=== PATIENT | female | born 1995 | race Caucasian/White ===

== ENCOUNTER → 2017-10-01 | Outpatient (CLI) | payer OTHER ==
--- NOTE | 2017-10-01 13:22 | DIAGNOSTIC IMAGING REPORT ---
DOPPLER ULTRASOUND OF THE RENAL ARTERIES CLINICAL HISTORY: Essential hypertension. COMPARISON STUDY: No priors. TECHNIQUE: Doppler sonography of the renal arteries was performed to assess renal artery stenosis. Images are reviewed in the transverse and longitudinal planes. FINDINGS: The kidneys appear normal in size and echotexture. Right kidney measures 11.0 cm in length and the left kidney measures 10.9 cm in length. There is no hydronephrosis. On the right, intrarenal arterial resistive indices range from 0.61 to 0.65. Intrarenal arterial waveforms are normal with brisk upstrokes. The right renal arterial waveform is normal, and velocities within the right renal artery measure up to 123 cm/sec. The right renal vein is patent. On the left, intrarenal arterial resistive indices range from 0.53 to 0.58. Intrarenal arterial waveforms are normal with brisk upstrokes. The left renal arterial waveform is normal, and velocities within the left renal artery measure up to 123 cm/sec. The left renal vein is patent. The abdominal aorta is patent. Velocities within the abdominal aorta measure up to 188 cm/s. IMPRESSION: There is no sonographic evidence of renal artery stenosis. Electronically signed by: Franck Smith M.D. 10/01/2017 1:21 PM Dictated Date/Time: 10/01/2017 1:19 PM
== END | disposition home or self-care (01) ==
LOC: C.ULTR 12:06
PROVIDERS: ATTEND Physician Assistant
DX: I10 Essential (primary) hypertension (principal)